=== PATIENT | male | born 1975 | race Caucasian/White ===

== ENCOUNTER 2017-06-14 01:37 | Emergency (ER) | payer SELFPAY ==
[~2017-06-14] VITALS: Ht 167.6 cm; Wt 95.9 kg
[~2017-06-14 01:37] MED LIST: MMW SSP; PENI500T PO
[2017-06-14 01:43] VITALS: BP 169/106; PULSE 78; RESP 22; TEMP 98; O2SAT 97
[2017-06-14] MEDS ORDERED: SODIUM CHLOR 0.9% 1000 ML INJ 1,000 ML IV SCH (01:59)
[2017-06-14] MEDS ORDERED: LIDOCAINE VISCOUS 2% SOLN 15 ML UDC PO ONE (02:00)
[2017-06-14] MEDS ORDERED: ONDANSETRON HCL 4 MG/2 ML VIAL IVP ONE (02:00)
[2017-06-14] MEDS ORDERED: ALUMINUM/MAGNESIUM/SIMETH 30 ML CUP PO ONE (02:00)
[2017-06-14] MEDS ORDERED: MORPHINE SULFATE 4 MG/ML INJ IV PUSH ONE (02:00)
[2017-06-14] MEDS ORDERED: SODIUM CHLORIDE 0.9% FLUSH 10 ML FLUSH IV FLUSH PRN (02:00)
--- NOTE | 2017-06-14 02:02 | PD ---
HPI Chief Complaint: Abdominal Pain Time Seen by Provider: 01:53 Travel History International Travel<30 days: No Contact w/Intl Traveler<30days: No Traveled to known affect area: No History of Present Illness HPI This is a 41-year-old male who presents to the emergency department having been woken up from sleep by epigastric abdominal pain, constant, sharp, radiating to the back associated with several episodes of vomiting. He denies any fevers or chills. He denies any diarrhea. He says he had pain like this a few years ago and at that time he is totally had a gallbladder attack. He's had no pain like this since then and he never needed his gallbladder out. He's had no abdominal surgeries. He denies drinking alcohol last evening. PFSH Past Medical History Diminished Hearing: No Immunizations Current: Yes Social History Alcohol Use: Yes (MODERATE) Tobacco Use: No Substance Use: No Allergies-Medications (Allergen,Severity, Reaction): Coded Allergies: No Known Allergies (Unverified Adverse Reaction, Unknown, 06/14/17) Reported Meds & Prescriptions Reported Meds & Active Scripts Active Review of Systems Except as stated in HPI: all other systems reviewed are Neg Physical Exam Narrative GENERAL:Well appearing, no acute distress SKIN: Focused skin assessment warm and dry. HEAD: Atraumatic. Normocephalic. EYES: Pupils equal and round. No injection or drainage. ENT: Moist mucous membranes NECK: Trachea midline. CARDIOVASCULAR: Regular rate and rhythm. No murmur appreciated. RESPIRATORY: Clear to auscultation. Breath sounds equal bilaterally. GASTROINTESTINAL: Abdomen soft, tender to palpation in the epigastrium with no rebound or guarding. MUSCULOSKELETAL: No obvious deformities. NEUROLOGICAL: Awake and alert. No obvious cranial nerve deficits. Moving all extremities. PSYCHIATRIC: Appropriate mood and affect; insight and judgment normal. Data Data Last Documented VS Vital Signs Date Time Temp Pulse Resp B/P (MAP) Pulse Ox O2 Delivery O2 Flow Rate FiO2 06/14/17 02:31 67 20 161/90 (113) 95 06/14/17 01:43 98.0 Orders Orders Complete Blood Count With Diff (06/14/17 01:59) Comprehensive Metabolic Panel (06/14/17 01:59) Lipase (06/14/17 01:59) Urinalysis - C+S If Indicated (06/14/17 01:59) Iv Access Insert/Monitor (06/14/17 01:59) Ecg Monitoring (06/14/17 01:59) Oximetry (06/14/17 01:59) Morphine Inj (Morphine Inj) (06/14/17 02:00) Ondansetron Inj (Zofran Inj) (06/14/17 02:00) Sodium Chlor 0.9% 1000 Ml Inj (Ns 1000 M (06/14/17 01:59) Sodium Chloride 0.9% Flush (Ns Flush) (06/14/17 02:00) Al-Mag Hy-Si 40-40-4 Mg/Ml Liq (Mag-Al P (06/14/17 02:00) Lidocaine 2% Viscous (Xylocaine 2% Visco (06/14/17 02:00) Us Abdomen Gallbladder (06/14/17 ) Labs Laboratory Tests Test 06/14/17 02:20 White Blood Count 7.9 TH/MM3 Red Blood Count 5.47 MIL/MM3 Hemoglobin 16.9 GM/DL Hematocrit 49.4 % Mean Corpuscular Volume 90.3 FL Mean Corpuscular Hemoglobin 30.9 PG Mean Corpuscular Hemoglobin Concent 34.3 % Red Cell Distribution Width 12.6 % Platelet Count 158 TH/MM3 Mean Platelet Volume 9.2 FL Neutrophils (%) (Auto) 84.1 % Lymphocytes (%) (Auto) 9.9 % Monocytes (%) (Auto) 5.6 % Eosinophils (%) (Auto) 0.2 % Basophils (%) (Auto) 0.2 % Neutrophils # (Auto) 6.7 TH/MM3 Lymphocytes # (Auto) 0.8 TH/MM3 Monocytes # (Auto) 0.4 TH/MM3 Eosinophils # (Auto) 0.0 TH/MM3 Basophils # (Auto) 0.0 TH/MM3 CBC Comment DIFF FINAL Differential Comment Blood Urea Nitrogen 11 MG/DL Creatinine 1.20 MG/DL Random Glucose 138 MG/DL Total Protein 7.1 GM/DL Albumin 3.8 GM/DL Calcium Level 9.0 MG/DL Alkaline Phosphatase 182 U/L Aspartate Amino Transf (AST/SGOT) 304 U/L Alanine Aminotransferase (ALT/SGPT) 271 U/L Total Bilirubin 1.4 MG/DL Sodium Level 141 MEQ/L Potassium Level 3.9 MEQ/L Chloride Level 104 MEQ/L Carbon Dioxide Level 28.1 MEQ/L Anion Gap 9 MEQ/L Estimat Glomerular Filtration Rate 66 ML/MIN Lipase 105 U/L [facility] Medical Decision Making Medical Screen Exam Complete: Yes Emergency Medical Condition: Yes Interpretation(s) Afebrile, no tachycardia, hypertensive No leukocytosis Total bilirubin is elevated, AST and ALT are elevated alkaline phosphatase is elevated Last 24 hours Impressions Gall Bladder Ultrasound 06/14/17 0000 Signed Impressions: Service Date/Time: Wednesday, June 14, 2017 08:31 - CONCLUSION: No gallstones are seen. There are small suspected gallbladder polyps. Owen Sosa MD Differential Diagnosis Gastritis, peptic ulcer disease, cholangitis, choledocholithiasis, pancreatitis , cholecystitis Narrative Course This is a 41-year-old male who presents to the emergency department with sudden onset of epigastric discomfort that woke him from sleep. He has no fever. He was given pain control and IV fluids and his pain completely resolved in the emergency department. Labs demonstrate an elevated total bilirubin as well as transaminitis concerning for possible choledocholithiasis. Right upper quadrant ultrasound was performed which is reassuring. I had a long conversation with the patient. I think it's reasonable for him to be discharged given his pain is completely resolved however if his pain recurs asked him to come to the emergency department again because he may require admission for further imaging and possible ERCP. Patient was given information regarding his failure health and informed that he needs to follow up regarding his elevated liver function tests. Diagnosis Primary Impression: Abdominal pain Qualified Codes: R10.13 - Epigastric pain Patient Instructions: General Instructions Additional Instructions: If you develop severe or worsening abdominal pain, fever>100.4, persistent vomiting or inability to eat or drink return to the emergency department immediately. Follow-up with her primary care physician and material expediter as your liver function tests are elevated concerning for gallstones, or liver disease. Med/Other Pt SpecificInfo: No Change to Meds Disposition: 01 DISCHARGE HOME Condition: Stable Cristine Mar MD Jun 14, 2017 02:02
[2017-06-14 02:26] LABS: AUTOMATED NEUTROPHIL # 6.7 TH/MM3 (1.8-7.7); BASOPHIL % 0.2 % (0.0-2.0); EOSINOPHIL % 0.2 % (0.0-4.0); HEMATOCRIT 49.4 % (39.0-51.0); LYMPH % 9.9 % (9.0-44.0); LYMPHOCYTE # 0.8 TH/MM3 (1.0-4.8); MEAN CELL VOLUME 90.3 FL (80.0-100.0); MEAN CORPUSCULAR HEMOGLOBIN 30.9 PG (27.0-34.0); MEAN CORPUSCULAR HGB CONC 34.3 % (32.0-36.0); MONO % 5.6 % (0.0-8.0); NEUT % 84.1 % (16.0-70.0); PLATELET COUNT 158 TH/MM3 (150-450); RED BLOOD COUNT 5.47 MIL/MM3 (4.50-5.90); RED CELL DISTRIBUTION WIDTH 12.6 % (11.6-17.2); WHITE BLOOD COUNT 7.9 TH/MM3 (4.0-11.0)
[2017-06-14 02:29] VITALS: BP 161/90; PULSE 83; RESP 20; O2SAT 98
[2017-06-14 02:31] VITALS: BP 161/90; PULSE 67; RESP 20; O2SAT 95
[2017-06-14 02:35] LABS: HEMO FLAGS DIFF FINAL
[2017-06-14 02:37] LABS: CHLORIDE 104 MEQ/L (98-107); POTASSIUM 3.9 MEQ/L (3.5-5.1); SODIUM (NA) 141 MEQ/L (136-145)
[2017-06-14 02:41] LABS: ANION GAP 9 MEQ/L (5-15); BICARBONATE 28.1 MEQ/L (21.0-32.0); BLOOD UREA NITROGEN 11 MG/DL (7-18)
[2017-06-14 02:44] LABS: ALT (GPT) 271 U/L (12-78); AST (GOT) 304 U/L (15-37); GLOMERULAR FILTRATION RATE 66 ML/MIN (>89)
[2017-06-14 02:46] LABS: TOTAL BILIRUBIN ADULT 1.4 MG/DL (0.2-1.0)
[2017-06-14 02:47] LABS: ALKALINE PHOSPHATASE 182 U/L (45-117)
[2017-06-14 03:30] VITALS: BP 165/78; PULSE 74; RESP 20; O2SAT 99
--- NOTE | 2017-06-14 04:04 | RADRPT ---
EXAM DATE/TIME: 06/14/2017 08:31 [facility] COMPARISON: No previous studies available for comparison. INDICATIONS : Woke up with epigastric pain and vomiting. MEDICAL HISTORY : Woke up with epigastric pain and vomiting. SURGICAL HISTORY : None. ENCOUNTER: Initial ACUITY: 1 day PAIN SCORE: 0/10 LOCATION: Right upper quadrant MEASUREMENTS: LIVER: 14.4 cm length COMMON DUCT: 7 mm RIGHT KIDNEY: 12.2 x 4.7 x 5.2 cm FINDINGS: LIVER: Normal echotexture without focal lesion or ductal dilatation. COMMON DUCT: No intraluminal mass or stone visualized. GALLBLADDER: No gallstone is seen. The gallbladder wall is not thickened. There are 2 small echogenic foci without shadowing likely related to small gallbladder polyps. PANCREAS: The visualized portions are within normal limits. RIGHT KIDNEY: No evidence of hydronephrosis, stone, or mass. CONCLUSION: No gallstones are seen. There are small suspected gallbladder polyps. Owen Sosa MD on June 14, 2017 at 4:00 Board Certified Radiologist. This report was verified electronically.
[2017-06-14 04:29] LABS: BLOOD, URINE NEG (NEG); GLUCOSE,URINE NEG (NEG); KETONE, URINE NEG (NEG); NITRITE,URINE NEG (NEG); PH, URINE 8.5 (5.0-8.5)
[2017-06-14 04:38] VITALS: BP 166/79
[2017-06-14 04:46] LABS: MUCUS URINE MOD /lpf (OCC); SQUAMOUS EPITHELIAL CELL URINE 0-5 /hpf (0-5); URINE COLOR YELLOW (YELLW/STRAW)
[2017-06-14 04:48] LABS: WBC, URINE 0-2 /hpf (0-5)
[2017-06-14 04:49] LABS: COMMENT (UR) CULT NOT INDICATED; CULTURE IF INDICATED CULT NOT INDICATED
== END 2017-06-14 04:42 | disposition home or self-care (01) ==
LOC: PHED 01:37
DX: R10.13 Epigastric pain (principal)
CPT/HCPCS: 76705; 80053; 81001; 83690; 85025; 96361; 96374; 96375; 99285; J2270; J2405; J7030